=== PATIENT | male | born 1985 | race Two or more races ===

== ENCOUNTER 2024-06-18 21:32 | Emergency (ER) | payer OTHER, MEDICAID, SELFPAY ==
[2024-06-18 21:33] VITALS: BMI 35.8
[2024-06-18 22:03] VITALS: BP 167/102; PULSE 89; RESP 20; TEMP 37.1; O2SAT 97
--- NOTE | 2024-06-18 22:16 | EDNOTE_ITS ---
ED Skin Abcess FB-RME/HPI General Chief complaint: Skin/Abscess/Foreign Body Stated complaint: ABSCESS ON ABD Time Seen by Provider: 06/18/24 21:51 Arrival date/time: 06/18/24 21:32 RME / HPI RME / HPI narrative: 38-year-old male patient came in for evaluation regarding lesion on the shaft of the penis proximal dorsal aspect patient noticed it for few days, getting worse, was seen by PCP 2 days ago and was started on Bactrim. Patient denies any fever denies any other complaints no medications taken prior to arrival. Related Data Previous Rx's ?Medication ?Instructions ?Recorded Cyclobenzaprine * (FLEXERIL *) 10 mg PO Q8HR PRN muscl e spasm #15 08/28/14 tabs Hydrocodone/Acetaminophen * (NORCO 1 tab PO Q4H PRN PA IN #28 tabs 10/09/14 5/325 *) ibuprofen 600 mg tablet 600 mg PO Q6HR PRN PAIN #40 tabs 10/09/14 acetaminophen 325 mg capsule 975 mg (3 x 325 mg) PO Q6 H PRN 01/17/20 pain #30 caps benzonatate 150 mg capsule 150 mg PO TID #20 caps 01/01 08/20 ibuprofen 800 mg tablet 800 mg PO TID PRN pain #20 t abs 01/17/20 azithromycin 250 mg tablet See Rx Instructions PO .COM PLEX #6 11/06/21 (Zithromax Z-Philip) tabs meloxicam 7.5 mg tablet 7.5 mg PO QDAY #10 tabs 08/22 amoxicillin 875 mg-potassium 1 tab PO Q12H #20 tabs clavulanate 125 mg tablet doxycycline hyclate 100 mg tablet 100 mg PO BID #28 ta bs 06/18/24 Allergies Allergy/AdvReac Type Severity Reaction Status Date / Time No Known Allergies Allergy Verified 11/06/21 09:38 Review of Systems Review of Systems Narrative Review of Systems: Review of system reviewed and within normal limits except mentioned in HPI ED Exam Narrative Physical exam: VITAL SIGNS: Reviewed. GENERAL APPEARANCE: Alert and interactive, follows commands, no acute distress, HEAD AND FACE: Non-traumatic. ENT: PERRL, pink conjunctivitis, eyelid no trauma, Mucous membrane moist. RECTAL: Deferred. GENITAL: 1x1 cm size open wound with puslike drainage dorsal aspect of the penis, nontender, no swelling on the shaft of the penis noted, no redness NEUROLOGICAL: Gross motor function intact sensory function intact, Appropriate for age. MUSCULOSKELETAL: low back nontender, full range of motion. EXTREMITIES: Nontender, full range of motion. SKIN: Color pink, dry, no rash, no lacerations, no abrasions, no contusions. LYMPHATICS: Deferred. Course Quality Measures none Orders Category Date Time Status Clindamycin Vial [Cleocin vial] Med 06/18/24 22:11 Discontinued 600 mg IM X1 ONE PEN G GALLO (Bicillin LA) [Bicillin La Inj] Med 06/18/24 22:22 Discontinued 2.4 mmu IM X1 ONE Vital Signs Vital signs: Vital Signs Temperature 98.8 F 06/18/24 22:03 Pulse Rate 89 06/18/24 22:03 Respiratory Rate 20 06/18/24 22:03 Blood Pressure 167/102 H 06/18/24 22:03 Pulse Oximetry (%) 97 06/18/24 22:03 Oxygen Delivery Method Room Air 06/18/24 22:03 Skin / Abscess / Foreign Body MDM Narrative MDM Narrative:: 38-year-old male patient came in for evaluation regarding lesion on the shaft of the penis proximal dorsal aspect patient noticed it for few days, getting worse, was seen by PCP 2 days ago and was started on Bactrim. Patient denies any fever denies any other complaints no medications taken prior to arrival. Patient's lesion could be a syphilis chancre versus abscess dorsal aspect of the penis. Patient received penicillin 2,500,000 units IM. And was discharged home on doxycycline. Patient was advised to closely follow-up with urologist. Patient agrees with the plan. Patient data External records reviewed:: None Clinical information provided by:: patient Social determinants that could affect healthcare access:: none Patient has the following chronic illnesses:: None How is presenting disease/condition affected by chronic disease/condition?: no chronic disease Evaluation data The following diagnostics were reviewed and interpreted by me:: other (specify) Lab and/or radiology exams considered but not ordered:: None Interpretation Summary: None Medications / Prescriptions Medications or Prescriptions considered but not ordered:: None Medication administrations:: Medication Administration History Discontinued Medications Clindamycin Phosphate (Clindamycin Phos Inj 150 Mg/Ml Vial 6 Ml) 600 mg IM X1 ONE Stop: 06/18/24 22:12 Penicillin G Benzathine (Pen G Gallo (Bicillin La) 2.4 Mmu/4 Ml Syrg) 2.4 mmu IM X1 ONE Stop: 06/18/24 22:23 Penicillin G LA 2,400,000 units IM x 1 Consultations Consultation(s) initiated? (list below): No Diagnosis Skin/Abscess Differential Diagnosis: abscess of skin or subcutaneous tissue and other (Penile abscess, penis chancre) Most likely diagnosis given after review of the tests above:: Penile lesion Admission Indicated Admission indicated?: not indicated Admission Request Was there a request for admission?: No Disposition Plan Disposition Plan: Discharge Discharge Attestation Discharge Attestation: The patient and all family members were given an opportunity to ask questions and understood the discharge instructions. Discharge instructions specifically effects, indications for sooner follow up or return to the emergency department, and the expected course of current diagnosis. Patient condition: Stable Discharge Plan Plan Patient Disposition: HOME (Self Care) Disposition Comment: stable Prescriptions/Referrals Prescriptions/Med Rec: New doxycycline hyclate 100 mg tablet 100 mg PO BID Qty: 28 0RF No Action Cyclobenzaprine * (FLEXERIL *) 10 MG tablet 10 mg PO Q8HR PRN (Reason: muscle spasm) Qty: 15 0RF ibuprofen 600 MG tablet 600 mg PO Q6HR PRN (Reason: PAIN) Qty: 40 0RF Hydrocodone/Acetaminophen * (NORCO 5/325 *) 1 TAB tablet 1 tab PO Q4H PRN (Reason: PAIN) Qty: 28 0RF benzonatate 150 mg capsule 150 mg PO TID Qty: 20 0RF acetaminophen 325 mg capsule 975 mg PO Q6H PRN (Reason: pain) Qty: 30 0RF ibuprofen 800 mg tablet 800 mg PO TID PRN (Reason: pain) Qty: 20 0RF azithromycin [Zithromax Z-Philip] 250 mg tablet See Rx Instructions .ROUTE .COMPLEX Qty: 6 0RF Rx Instructions: For 250 mg dose pack: take 500 mg today (day 1), then 250 mg for 4 days (days 2-5) meloxicam 7.5 mg tablet 7.5 mg PO QDAY Qty: 10 0RF amoxicillin-pot clavulanate 875-125 mg tablet 1 tab PO Q12H Qty: 20 0RF Problem List Clinical Impression: Penile lesion Patient/Caregiver Discharge Instructions Discharge Activity: activity as tolerated Additional Instructions: Thank you for the opportunity for serving you today. You are stable for discharged . You are advised to: Follow-up with your PCP in 1 to 2 days and asked for referral to urologist Return to ED for worsening of symptoms Increase oral fluids Take medication as prescribed Print Language: Macedonian Stand Alone Forms: Teodora Award Info., Patient Portal Info Letter PA/SUMA Supervising Physician PATRICIA/SUMA Supervising Physician: Md Taniya
[2024-06-18] MEDS: PEN G BENZ (Bicillin LA) 1.2 MMU/2 ML SYRG 2.4 MMU IM (23:18)
[2024-06-18 23:26] VITALS: BP 164/96; PULSE 83; RESP 18; TEMP 36.8; O2SAT 97
== END 2024-06-18 23:42 | disposition home or self-care (01) ==
LOC: SERX 22:27
PROVIDERS: Emergency Provider Emergency Medicine
DX: N48.89 Other specified disorders of penis (principal)
CPT/HCPCS: 96372; 99283; J0561

== ENCOUNTER 2024-07-11 16:10 | Emergency (ER) | payer OTHER, MEDICAID, SELFPAY ==
[2024-07-11 16:23] VITALS: BP 190/117; PULSE 96; RESP 18; TEMP 36.7; O2SAT 96
--- NOTE | 2024-07-11 16:30 | EDNOTE_ITS ---
ED General RME/HPI General Chief complaint: Skin/Abscess/Foreign Body Stated complaint: ABSCESS SUPRAPUBIC AREA. HAS COME BEFORE Time Seen by Provider: 07/11/24 16:23 Arrival date/time: 07/11/24 16:10 CC: Infected spots above his penis HPI noticed 2 days ago. Patient popped the mall and they promptly return. Patient has been on antibiotics for the similar complaint on the shaft of his penis. Patient denies shaving his MILA area in the last 2 weeks. Patient also states he has been noncompliant with all of his hypertensive medications secondary to running out . Currently patient denies fever chest pain shortness of breath difficulty breathing nausea vomiting Related Data Previous Rx's ?Medication ?Instructions ?Recorded Cyclobenzaprine * (FLEXERIL *) 10 mg PO Q8HR PRN muscl e spasm #15 08/28/14 tabs Hydrocodone/Acetaminophen * (NORCO 1 tab PO Q4H PRN PA IN #28 tabs 10/09/14 5/325 *) ibuprofen 600 mg tablet 600 mg PO Q6HR PRN PAIN #40 tabs 10/09/14 acetaminophen 325 mg capsule 975 mg (3 x 325 mg) PO Q6 H PRN 01/17/20 pain #30 caps benzonatate 150 mg capsule 150 mg PO TID #20 caps 01/01 08/20 ibuprofen 800 mg tablet 800 mg PO TID PRN pain #20 t abs 01/17/20 azithromycin 250 mg tablet See Rx Instructions PO .COM PLEX #6 11/06/21 (Zithromax Z-Philip) tabs meloxicam 7.5 mg tablet 7.5 mg PO QDAY #10 tabs 08/22 amoxicillin 875 mg-potassium 1 tab PO Q12H #20 tabs clavulanate 125 mg tablet doxycycline hyclate 100 mg tablet 100 mg PO BID #28 ta bs 06/18/24 doxycycline hyclate 100 mg capsule 100 mg PO BID #28 c aps 07/11/24 hydrochlorothiazide 25 mg tablet 25 mg PO QAM #30 tabs 07/11/24 losartan 50 mg tablet 50 mg PO QDAY #30 tabs 07/11 Allergies Allergy/AdvReac Type Severity Reaction Status Date / Time No Known Allergies Allergy Verified 07/11/24 16:13 Review of Systems Review of Systems Narrative Review of Systems: GEN: No fever, no chills, no weight loss EYES: No discharge, no visual changes, no pain HEENT: No ear pain, no congestion, no sore throat PULM: No shortness of breath, no cough, no congestion CV: No chest pain, no dyspnea on exertion, no palpitations GI: No nausea, no vomiting, no diarrhea, no pain, no constipation : No frequency, no urgency, no dysuria MUSC/SKEL: No joint pain, no back pain SKIN: Pustules no rash PSYCH: No hallucinations, no depression HEME/LYMPH: No easy bleeding or bruising tendencies NEURO: No weakness, no headache Past Medical History Past Medical History CARDIAC: Positive Hypertension; Negative Congestive Heart Failure RESPIRATORY: Negative Chronic Obstructive Pulmonary Disease (COPD) GENITOURINARY: Negative Renal Disease ENDOCRINE: Negative Diabetes Mellitus Type 1 or Diabetes Mellitus Type 2 Social History SMOKING STATUS: Never smoker ED Exam Narrative Physical exam: [General: Obese not in cot no acute distress Head normocephalic HEENT: Within acceptable limits Neck is supple nontender Chest equal chest rise nontender to palpation Respiratory: Clear to auscultation no wheezes crackles or rubs CV: Rate rhythm is regular no murmurs rubs or clicks Abdomen is distended secondary to body habitus soft nontender no masses positive bowel sounds all 4 quadrants Back: No CVA tenderness no spinous process tenderness from cervical spine thoracic and lumbar spine Skin: Multiple 3 to 5 mm pustules scattered throughout the pubis mons, no open lesions indurations or ulcerations. 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 Otherwise skin is intact no other petechiae rash induration ulceration or crepitus Extremities: Moving all extremity against resistance cap refill less than 2 seconds neurosensory intact Neuro: Awake alert oriented x3 Glascow coma 15 no focal deficits] Course Quality Measures none Orders Category Date Time Status Doxycycline [Vibramycin] Med 07/11/24 16:47 Discontinued 100 mg PO X1 ONE cloNIDine HCL [Catapres] Med 07/11/24 16:29 Discontinued 0.2 mg PO X1 ONE Vital Signs Vital signs: Vital Signs Temperature 98.0 F 07/11/24 16:23 Pulse Rate 96 07/11/24 16:23 Respiratory Rate 18 07/11/24 16:23 Blood Pressure 190/117 H 07/11/24 16:23 Pulse Oximetry (%) 96 07/11/24 16:23 Oxygen Delivery Method Room Air 07/11/24 16:23 Discharge Plan Plan Patient Disposition: HOME (Self Care) Patient condition on transfer: Stable Prescriptions/Referrals Prescriptions/Med Rec: New doxycycline hyclate 100 mg capsule 100 mg PO BID Qty: 28 0RF hydrochlorothiazide 25 mg tablet 25 mg PO QAM Qty: 30 1RF losartan 50 mg tablet 50 mg PO QDAY Qty: 30 1RF No Action Cyclobenzaprine * (FLEXERIL *) 10 MG tablet 10 mg PO Q8HR PRN (Reason: muscle spasm) Qty: 15 0RF ibuprofen 600 MG tablet 600 mg PO Q6HR PRN (Reason: PAIN) Qty: 40 0RF Hydrocodone/Acetaminophen * (NORCO 5/325 *) 1 TAB tablet 1 tab PO Q4H PRN (Reason: PAIN) Qty: 28 0RF benzonatate 150 mg capsule 150 mg PO TID Qty: 20 0RF acetaminophen 325 mg capsule 975 mg PO Q6H PRN (Reason: pain) Qty: 30 0RF ibuprofen 800 mg tablet 800 mg PO TID PRN (Reason: pain) Qty: 20 0RF azithromycin [Zithromax Z-Philip] 250 mg tablet See Rx Instructions .ROUTE .COMPLEX Qty: 6 0RF Rx Instructions: For 250 mg dose pack: take 500 mg today (day 1), then 250 mg for 4 days (days 2-5) meloxicam 7.5 mg tablet 7.5 mg PO QDAY Qty: 10 0RF amoxicillin-pot clavulanate 875-125 mg tablet 1 tab PO Q12H Qty: 20 0RF doxycycline hyclate 100 mg tablet 100 mg PO BID Qty: 28 0RF Referrals: No Primary/Family,Physician [Primary Care Provider] - In 1 week Problem List Clinical Impression: Folliculitis, Hypertension Patient/Caregiver Discharge Instructions Education Materials: Hypertension Dc, ED Folliculitis Print Language: Faroese Stand Alone Forms: Teodora Award Info., Work/School Release, Patient Portal Info Letter PA/ARCH CUSHION PRESS OPERATOR Supervising Physician PA/ARCH CUSHION PRESS OPERATOR Supervising Physician: Hebert Foster ENP MDM Medication Administration(s) Medication Administration History Discontinued Medications Clonidine (Clonidine Hcl 0.1 Mg Tablet) 0.2 mg PO X1 ONE Stop: 07/11/24 16:30 Last Admin: 07/11/24 16:37 Dose: 0.2 mg Documented By: KELSEA Doxycycline Hyclate (Doxycycline 100 Mg Tablet) 100 mg PO X1 ONE Stop: 07/11/24 16:48 Last Admin: 07/11/24 16:55 Dose: 100 mg Documented By: KELSEA
[2024-07-11 16:37] VITALS: BP 171/91; PULSE 98
[2024-07-11] MEDS: cloNIDine HCL 0.1 MG TABLET 0.2 MG PO (16:37)
[2024-07-11 16:44] VITALS: BP 171/91; PULSE 92; RESP 19; TEMP 36.7; O2SAT 94
[2024-07-11] MEDS: DOXYCYCLINE 100 MG TABLET PO (16:55)
[2024-07-11 17:42] VITALS: BP 169/96; PULSE 70; RESP 18; TEMP 36.6; O2SAT 97
== END 2024-07-11 17:44 | disposition home or self-care (01) ==
PROVIDERS: Emergency Provider Family Medicine
DX: L73.9 Follicular disorder, unspecified (principal); I10 Essential (primary) hypertension; Z91.148 Patient's other noncompliance with medication regimen for other reason
CPT/HCPCS: 99282; A9270